=== PATIENT | male | born 1945 | race African-American/Black ===

== ENCOUNTER 2018-08-31 01:22 | Inpatient (IN) ==
[2018-08-31] MEDS ORDERED: DUONEB (A & A) INH ONE (01:45)
[2018-08-31] MEDS ORDERED: SOLU-MEDROL IV ONE (01:45)
--- NOTE | 2018-08-31 02:10 | PROVIDER DOCUMENTATION ---
This chart was entered by Jaclyn Fang Scribe, acting as scribe for Tomás Harrison MD. HPI-Respiratory General - General Chief Complaint: Shortness of Breath Stated Complaint: SOB Time Seen by Provider: 08/31/18 01:39 Source: patient Allergies/Adverse Reactions: Patient Allergies Allergy/AdvReac Type Severity Reaction Status Date / Time No Known Allergies Allergy Verified 08/26/14 01:24 Home Medications: Home Medication List Medication Instructions Recorded Confirmed Last Taken Type Fluticasone/Salmeterol [Advair 1 each IH DAILY 07/29/13 08/26/14 08/24/14 08:00 History 500-50 Diskus] Ipratropium/Albuterol INH 1 puff INH RTQ6H 07/29/13 08/26/14 08/25/14 08:00 History [Combivent Respimat Inhaler] Isosorbide Mononitrate [Isosorbide 30 mg PO DAILY 07/29/13 08/26/14 08/03/13 20:00 History Mononitrate ER] Losartan [Cozaar] 100 mg PO DAILY 07/29/13 08/26/14 08/03/13 20:00 History Nitroglycerin [Nitrostat] 0.6 mg SL DIRECTED PRN 07/29/13 08/26/14 08/02/13 History Terazosin [Hytrin] 5 mg PO DAILY 07/29/13 08/26/14 08/25/14 08:00 History Allopurinol 300 mg PO BID 08/26/14 08/26/14 08/25/14 08:00 History Amoxicillin 1,000 mg PO BID 08/26/14 08/26/14 Unknown History Clarithromycin [Biaxin] 500 mg PO BID 08/26/14 08/26/14 Unknown History Furosemide [Lasix] 20 mg PO BID #60 tablet 08/26/14 Unknown Rx Hydrochlorothiazide 25 mg PO DAILY 08/26/14 08/26/14 08/25/14 08:00 History Ipratropium/Albuterol Sulfate 1 each INH BID 08/26/14 08/26/14 08/25/14 08:00 History [Combivent Respimat Inhal Silver] Lansoprazole [Prevacid] 60 mg PO BID PRN 08/26/14 08/26/14 Unknown History Metoprolol Succinate [Toprol Xl] 50 mg PO DAILY 08/26/14 08/26/14 08/25/14 08:00 History Omeprazole [Prilosec] 40 mg PO DAILY 08/26/14 08/26/14 08/25/14 08:00 History Tramadol HCl [Ultram] 1 - 2 each PO Q6H PRN PRN 08/26/14 08/26/14 Unknown History - History of Present Illness-Resp Nature of Presenting Problem: pt is a 73 yr old male presenting with 2 week complaint of shortness of breath, pt reports he is currently being treated by his PCP and next appointment is on Saturday. pt reports using douneb tx with no relief Quality of Pain: reports: none Severity in ED: reports: moderate Onset/Duration: reports: other (2weeks) Timing: reports: still present, getting worse Exposure: reports: unknown cause Cough Quality/Degree: reports: moderate, productive cough, sputum (white sputum) Episode Frequency: occasional episodes Current Respiratory Medication Therapy: Initiated A/A nebulizer (no improvement) Modifying Factors: improves with: albuterol nebulizer (no improvement) Associated Symptoms: reports: cough, shortness of breath, wheezing Similar Symptoms Previously?: Yes Recently seen or treated by another doctor?: Yes (tx'd by PCP) Review of Systems - Adult - REVIEW OF SYSTEMS - ADULT Constitutional: denies: chills, fever Eyes: reports: no symptoms reported Ears, Nose, Mouth & Throat: reports: no symptoms reported Cardiovascular: denies: chest pain, palpitations, syncope Respiratory: reports: cough, dyspnea on exertion, shortness of breath, wheezing Gastrointestinal: denies: abdominal pain, diarrhea, nausea, vomiting Genitourinary: reports: no symptoms reported Musculoskeletal: reports: no symptoms reported Integumentary: reports: no symptoms reported Neurological: reports: no symptoms reported Psychiatric: reports: no symptoms reported Endocrine: reports: no symptoms reported Hematologic/Lymphatic: reports: no symptoms reported Allergic/Immunologic: reports: no symptoms reported All Other Systems: Reviewed and Negative Past History - Adult - PAST MEDICAL HISTORY-ADULT Review of Records: reports: Old Records Reviewed, Nursing Assessment Review, Medications Reviewed, Social history reviewed & non-contributory. Major Childhood Illnesses: reports: denies history Cardiovascular: reports: CAD, CHF, HTN Respiratory: reports: COPD Gastrointestinal: reports: GERD Obstetrical/Gynecological: reports: denies history Genitourinary: reports: denies history Musculoskeletal: reports: denies history Neurological: reports: denies history Endocrine/Immune: reports: denies history Other Conditions: reports: denies history - PRIOR SURGERIES/PROCEDURES Surgical/Procedure History: reports: CABG - IMMUNIZATION STATUS Childhood Immunizations: See Nurse Assessment Flu Vaccine: See Nurse Assessment - FAMILY HISTORY Family History: reviewed, not pertinent - SOCIAL HISTORY Smoking: quit greater than 1 year Substance Use: denies Living Situation: alone Physical Exam-General - PHYSICAL EXAM-ADULT Initial Vital Signs Reviewed: Yes - CONSTITUTIONAL General Appearance: alert, no apparent distress - EYES Eyes: PERRL/EOMI - HEAD, EARS, NOSE, MOUTH & THROAT HENMT: normocephalic/atraumatic, moist mucous membranes, normal ENT inspection - NECK Neck: non-tender, full range of motion, supple, normal inspection - RESPIRATORY Respiratory: wheezing (diffuse inspritory/expritory wheezes) - CARDIOVASCULAR Cardiovascular: normal peripheral pulses, regular rate, rhythm - GASTROINTESTINAL (ABDOMEN) Abdominal Exam: normal bowel sounds, non tender, soft - LYMPHATIC Lymphatic: no adenopathy - MUSCULOSKELETAL Back Exam: normal inspection, no CVA tenderness, no vertebral tenderness Extremity: normal range of motion, non-tender, normal gait, normal inspection - SKIN Integumentary: normal color, normal turgor, warm/dry - NEUROLOGIC Neurologic: grossly normal, no motor/sensory deficits - PSYCHIATRIC Psych/Mental Status: normal mood/affect Progress - PLAN OF CARE/RESULTS Progress/Plan/Lab Results: Vital Signs - 8 hr 08/31/18 01:24 08/31/18 01:28 Temperature 98.3 F Pulse Rate 59 L 61 Respiratory Rate 18 20 Blood Pressure 157/72 O2 Sat by Pulse Oximetry 97 95 Laboratory Results - last 24 hr 08/31/18 08/31/18 08/31/18 01:56 01:56 01:56 WBC 10.70 RBC 5.04 Hgb 14.1 Hct 41.2 L MCV 81.7 MCH 28.0 MCHC 34.2 RDW Std Deviation 15.2 H Plt Count 202 MPV 10.2 Immature Gran % (Auto) 0.2 Neut % (Auto) 60.9 Lymph % (Auto) 23.0 Patrick % (Auto) 5.7 Eos % (Auto) 9.5 Baso % (Auto) 0.7 Immature Gran # (Auto) 0.02 Neut # (Auto) 6.51 H Lymph # (Auto) 2.46 Patrick # (Auto) 0.61 H Eos # (Auto) 1.02 H Baso # (Auto) 0.08 Sodium 146 H Potassium 3.3 L Chloride 104 Carbon Dioxide 30 Anion Gap 12 BUN 16 Creatinine 1.3 H Estimated GFR/1.73 m2 54 BUN/Creatinine Ratio 12 Glucose 123 H Calculated Osmolality 293 Calcium 9.6 Creatine Kinase Troponin T < 0.010 Acv-Q-Raejxfwkgug Pept 08/31/18 08/31/18 01:56 01:56 WBC RBC Hgb Hct MCV MCH MCHC RDW Std Deviation Plt Count MPV Immature Gran % (Auto) Neut % (Auto) Lymph % (Auto) Patrick % (Auto) Eos % (Auto) Baso % (Auto) Immature Gran # (Auto) Neut # (Auto) Lymph # (Auto) Patrick # (Auto) Eos # (Auto) Baso # (Auto) Sodium Potassium Chloride Carbon Dioxide Anion Gap BUN Creatinine Estimated GFR/1.73 m2 BUN/Creatinine Ratio Glucose Calculated Osmolality Calcium Creatine Kinase 413 H Troponin T Hnd-L-Secsaazfxps Pept 148 Orders Category Date Time Status Cardiac Monitoring DIRECTED Care 08/31/18 01:47 Active CHEST-PORTABLE [RAD] Stat Exams 08/31/18 01:48 Taken ABG [RESP] Routine Lab 08/31/18 02:55 Ordered BLOOD CULTURE [BLDCUL] Stat Lab 08/31/18 01:58 Ordered BMP [BASIC METABOLIC PANEL] [CHEM] Stat Lab 08/31/18 01:56 Completed BNP [PRO B-NATRIURETIC PEPTIDE] Stat Lab 08/31/18 01:56 Completed CBC WITH ELECTRONIC DIFF [HEME] Stat Lab 08/31/18 01:56 Completed CK PROFILE [SP CHEM] Stat Lab 08/31/18 01:56 Results TROPONIN T Stat Lab 08/31/18 01:56 Completed Albuterol 2.5MG/Ipratrop 0.5MG [Duoneb (A & A)] Med 08/31/18 01:45 Discontinued 3 ml INH NOW ONE CefTRIAXONE [Rocephin] 1 gm Med 08/31/18 02:54 Active 0.9% Sodium Chloride Inj [Ns] 50 ml IV NOW Methylprednisolone Sod Succ [Solu-Medrol] Med 08/31/18 01:45 Discontinued 125 mg IV NOW ONE Aerosol Treatments Routine Oth 08/31/18 01:45 Active Aerosol Treatments Stat Oth 08/31/18 01:45 Active EKG [EKG] Stat Ther 08/31/18 01:47 Ordered Result Diagrams: 08/31/18 01:56 08/31/18 01:56 - EKG 1 Time of EKG reading by physician:: 01:47 EKG Read and Signed by:: Tomás Harrison Rate: 59 Rhythm: sinus yoly QRS: normal MT Interval: normal - XRAY 1 XRAY Study: Chest XRAY Interpretation: obscured left hemidiaphram- cannot rule out LLL infiltrate - CONSULTS/PCP/HOSPITALIST Notification #1 *Consult/PCP/Hospitalist*: Dr. Cruz, hospitalist Time Discussed: 03:05 Consult Disposition: Admit Departure - Departure Date of Disposition Decision: 08/31/18 Time of Disposition Decision: 03:04 DIAGNOSIS: COPD exacerbation Disposition: ADMITTED INPATIENT 09 Certified Medical Emergency: Emergent Condition: Stable Referrals and Follow-Ups: Violeta Jay MD [Primary Care Provider] - - Critical Care Note This patient required my direct & personal management of CC.: No Attestation - Physician/ KHALIF Attestation Patient care was provided by Advanced Practice Provider:: No The physician spent face to face time with patient:: Yes Advanced Practice Provider documentation review:: Supervising physician onsite and consulted in the evaluation and care of this patient. The physician did have a face to face encounter with the patient. This chart was documented by the indicated scribe, (Jaclyn Fang Scribe) and accurately reflects the services I performed and decisions made by me, Tomás Harrison MD, as attested by the provider's signature.
[2018-08-31 02:30] LABS: BASO# 0.08 X1000 (0.0-0.2); BASO% 0.7 % (0.0-0.8); EOS# 1.02 X1000 (0.0-0.7); EOS% 9.5 % (0.0-10.0); HEMATOCRIT 41.2 % (42.0-52.0); HEMOGLOBIN 14.1 g/dL (14.0-18.0); IMM GRAN# 0.02 X1000 (0.0-0.04); IMM GRAN% 0.2 % (0.0-0.5); LYMPH# 2.46 X1000 (1.2-3.4); MCHC 34.2 g/dL (33-37); MCV 81.7 FL (81-99); MONO# 0.61 X1000 (0.11-0.59); MONO% 5.7 % (1.7-9.3); MPV 10.2 FL (7.4-10.4); NEUT# 6.51 X1000 (1.4-6.5); NEUT% 60.9 % (42.2-75.2); PLT 202 X1000 (130-400); RBC 5.04 XMIL (4.7-6.1); RDW 15.2 % (11.5-14.5)
[2018-08-31 02:42] LABS: CALCIUM 9.6 mg/dL (8.8-10.2); CREATININE 1.3 mg/dL (0.7-1.2); POTASSIUM 3.3 mmol/L (3.5-5.1)
[2018-08-31] MEDS ORDERED: ROCEPHIN 1 GM in NS 50 ML IV ONE (02:54)
[2018-08-31] MEDS ORDERED: ZITHROMAX 500 MG/NS 500 MG/250 ML IVPB IV ONE (03:07)
[2018-08-31 03:15] LABS: CK INDEX 0.8 (0.0-2.5); CK-MB 3.1 ng/mL (0.0-5.0)
[2018-08-31] MEDS: SOLU-MEDROL IV SCH ×3 (03:30→16:56)
[2018-08-31] MEDS: DUONEB (A & A) INH SCH ×6 (04:13→23:02)
[2018-08-31 06:43] LABS: BLOOD TYPE ARTERIAL; SAMPLE BLOOD
[2018-08-31 06:49] LABS: PCO2(98.6) 50 mmHg (35-45); pH(98.6) 7.43 (7.35-7.45)
[2018-08-31 06:50] LABS: BE 7.3 mmoll (-3.0-3.0); HCO3-(ACT) 30.6 mmoll (20.0-26.0); PO2(98.6) 121 mmHg (60-100)
[2018-08-31 06:51] LABS: METHB 1.6 % (0.0-1.5); O2(CT) 20.1 mL/dL (15.0-23.0); O2HB 95.4 % (95.0-99.0); SAO2 98.1 % (95.0-100.0); THB 14.9 g/dL (11.5-17.4)
[2018-08-31 06:52] LABS: ALLEN TEST YES; MODALITY CANNULA
[2018-08-31] MEDS: HUMULIN R (PARKWAY) SUBQ SCH ×4 (07:41→20:23)
--- NOTE | 2018-08-31 07:42 | Diag Imaging Result Doc PS360 ---
EXAM: CHEST-PORTABLE HISTORY: sob,wheezing TECHNIQUE: Chest single view COMPARISON: 10/10/2015 FINDINGS: Poor inspiratory effort. Sternal wires and surgical clips are present. Mild cardiac prominence. No consolidation. Mild increased markings in the left base. No pleural effusions identified. IMPRESSION: Possible small left lower infiltrate. Electronically signed by Taj Singh 08/31/2018 7:39 AM
[2018-08-31] MEDS: LOPRESSOR PO SCH ×2 (09:03→20:23)
[2018-08-31] MEDS ORDERED: NS 1,000 ML IV ONE (09:46)
[2018-08-31] MEDS ORDERED: KLOR-CON PO ONE (09:50)
[2018-08-31] MEDS ORDERED: PRILOSEC PO PRN (11:26)
[2018-08-31] MEDS ORDERED: ULTRAM PO PRN (11:26)
[2018-08-31] MEDS ORDERED: NITROGLYCERIN SL PRN (11:26)
--- NOTE | 2018-08-31 12:26 | HISTORY AND PHYSICAL ---
PRIMARY CARE PHYSICIAN: Dr. Violeta Jay CHIEF COMPLAINT: Dyspnea, cough, wheezing. HISTORY OF PRESENT ILLNESS: Mr. Ferrera is a 73-year-old male with a history of COPD, hypertension, coronary artery disease, who presents with 1 month of progressive dyspnea. He reports worsening shortness of breath with exertion, wheezing, cough which is nonproductive. He went to see Dr. Jay around 2 weeks ago who prescribed him antibiotic in the office along with Z- Ethan and oral steroids. Unfortunately, his symptoms have not improved. He continues to have worsening dyspnea on exertion with wheezing and cough. He came to the ER last night. Chest x-ray showed possible small left lower lobe infiltrate, although inspiration was poor. His laboratory data shows mild hypernatremia and some mild renal insufficiency which is new for him. He denies orthopnea. No real lower extremity edema and no chest pain. He does not have a fever. He has been started on antibiotics, breathing treatments and aggressive pulmonary toilet. He will be admitted for further treatment and evaluation. PAST MEDICAL HISTORY: 1. COPD on nocturnal oxygen. 2. Suspect sleep apnea. 3. Coronary artery disease. 4. Hypertension. 5. Hyperlipidemia. 6. Diabetes mellitus. 7. Gastroesophageal reflux disease. 8. Obesity. PAST SURGICAL HISTORY: He has had a CABG. SOCIAL HISTORY: He quit smoking 5 years ago. He denies alcohol or drug use. FAMILY HISTORY: Noncontributory. REVIEW OF SYSTEMS: A 14-point review of systems was obtained and found to be negative with the exception of the HPI. ALLERGIES: No known drug allergies. HOME MEDICATIONS: Albuterol 4 times a day, allopurinol 300 mg p.o. b.i.d., atorvastatin 40 mg daily, glipizide 5 mg p.o. b.i.d., hydrochlorothiazide 25 mg daily, Hytrin 5 mg daily, latanoprost 2.5 mL to both eyes daily, metoprolol tartrate 25 mg p.o. b.i.d., Nitrostat 0.6 mg sublingual as needed, potassium chloride 10 mEq p.o. daily, Prilosec 40 mg as needed, tramadol 50 to 100 mg as needed daily, Lasix 20 mg p.o. b.i.d. PHYSICAL EXAMINATION: VITAL SIGNS: Blood pressure is 146/83, heart rate 67, respiratory rate 22, O2 saturation is 94% on nasal cannula, temperature is 98.3 GENERAL: An obese male lying in hospital bed in no acute distress. NEUROLOGICAL: Awake, alert and oriented, follows commands, no focal deficits. HEENT: Head is atraumatic and normocephalic. Pupils are equal, round and reactive to light. Oral mucosa dry. NECK: Trachea midline. No JVD. CHEST: Wheezes bibasilarly. CARDIOVASCULAR: Regular rate and rhythm. S1 and S2 are noted. There are no murmurs. GASTROINTESTINAL: Soft, nondistended and nontender. Bowel sounds positive. EXTREMITIES: No edema. Pulses 1+ bilaterally. DIAGNOSTIC DATA: Chest x-ray shows questionable left lower lobe infiltrate, poor inspiration. WBC is 10.7, hemoglobin 14.1, hematocrit 41.2, platelet count 202. ABG on nasal cannula shows pH of 7.43, CO2 of 50, O2 is 121, bicarbonate 30.6. Sodium is 146, potassium 3.3, chloride 104, CO2 is 30, anion gap is 12, BUN is 16, creatinine 1.3, glucose 123, calcium 9.6, magnesium 1.6. CK is 413. Troponin negative. ProBNP is 148. ASSESSMENT AND PLAN: 1. Chronic obstructive pulmonary disease exacerbation with questionable pneumonia. Continue antibiotics, breathing treatments and aggressive pulmonary toilet. We have added incentive spirometry and will check a 2-view chest x-ray with better inspiration. We have ordered sputum cultures as well. 2. Acute kidney injury. The patient appears volume depleted with hypokalemia and hypernatremia. He is likely slightly volume depleted. We will order some light IV fluids and hold his diuretics and monitor response and adjust as necessary. 3. Hypertension. Continue home medications. Stable. 4. Diabetes mellitus. Add pattern sugars, sliding scale insulin. Hold his glipizide. 5. Hypokalemia. We will check a magnesium and replace. 6. DVT prophylaxis with Lovenox. Further recommendations to follow. Dictated by ALEJANDRO Parham for Jeremías Cruz MD cc: ALEJANDRO Parham MD Bernice Swain, MD
--- NOTE | 2018-08-31 13:17 | Diag Imaging Result Doc PS360 ---
EXAM: CHEST-2 VIEWS HISTORY: copd vs pna, poor inspiratory effort on portable TECHNIQUE: Chest two views COMPARISON: 08/31/2018 2:03 AM FINDINGS: The lungs are well expanded. The heart is not enlarged. Sternal wires are present. The vessels are not distended. The markings in the left base are less pronounced on the current exam. No pleural effusions. IMPRESSION: No definite pneumonia. Electronically signed by Taj Singh 08/31/2018 1:14 PM
[2018-08-31 13:36] LABS: BILIRUBIN URINE NEGATIVE (NEGATIVE); CLARITY CLEAR (CLEAR); COLOR YELLOW; KETONE URINE NEGATIVE (NEGATIVE); URINE EPITHELIAL CELLS <10 /HPF (<10); URINE RBC <10 /HPF (<10); URINE SOURCE CLEAN CATCH
[2018-08-31 13:37] LABS: BLOOD URINE 2+ (NEGATIVE); LEUKOCYTES URINE NEGATIVE (NEGATIVE); NITRITE URINE NEGATIVE (NEGATIVE); PROTEIN URINE NEGATIVE (NEGATIVE); UROBILINOGEN URINE NORMAL
[2018-08-31] MEDS: ACCUNEB INH SCH ×2 (16:42→23:02)
[2018-08-31] MEDS ORDERED: HYTRIN PO SCH (20:45)
[2018-09-01] MEDS: SOLU-MEDROL IV SCH ×3 (00:03→18:10)
--- NOTE | 2018-09-01 00:28 | HISTORY AND PHYSICAL ---
ADDENDUM: Patient seen and examined by myself. Full note dictated and discussed with nurse practitioner. Patient presented to the hospital with increased cough, congestion, shortness of breath. Subsequently he was diagnosed with COPD exacerbation. We will admit him to the hospital. Fluids, antibiotics, breathing treatments and we will follow. cc: Jeremías Cruz MD
[2018-09-01] MEDS: DUONEB (A & A) INH SCH ×2 (03:16→07:40)
[2018-09-01] MEDS: ACCUNEB INH SCH ×4 (03:17→20:54)
[2018-09-01] MEDS: ROCEPHIN 1 GM in NS 50 ML IV SCH (06:01)
[2018-09-01] MEDS: HUMULIN R (PARKWAY) SUBQ SCH ×4 (06:15→21:42)
[2018-09-01] MEDS ORDERED: PRILOSEC PO PRN (07:00)
[2018-09-01 07:55] LABS: HEMOGLOBIN A1C 6.2 % (4.8-6.0)
[2018-09-01 07:56] LABS: BASO# 0.01 X1000 (0.0-0.2); BASO% 0.1 % (0.0-0.8); EOS# 0.01 X1000 (0.0-0.7); EOS% 0.1 % (0.0-10.0); HEMATOCRIT 41.8 % (42.0-52.0); HEMOGLOBIN 14.1 g/dL (14.0-18.0); IMM GRAN# 0.05 X1000 (0.0-0.04); IMM GRAN% 0.3 % (0.0-0.5); LYMPH# 1.32 X1000 (1.2-3.4); LYMPH% 7.9 % (20.5-51.1); MCH 27.7 PG (27-31); MCHC 33.7 g/dL (33-37); MCV 82.1 FL (81-99); MPV 10.7 FL (7.4-10.4); NEUT# 14.83 X1000 (1.4-6.5); NEUT% 88.6 % (42.2-75.2); PLT 201 X1000 (130-400); RBC 5.09 XMIL (4.7-6.1); RDW 15.1 % (11.5-14.5); WBC 16.72 X1000 (4.8-10.8)
[2018-09-01] MEDS ORDERED: ZITHROMAX 500 MG/NS 500 MG/250 ML IVPB IV SCH (08:00)
[2018-09-01 08:13] LABS: AGAP 11; BUN 20 mg/dL (8-22); CALCIUM 9.4 mg/dL (8.8-10.2); CHLORIDE 106 mmol/L (98-107); COSMO 296; ESTIMATED GFR > 60; GLUCOSE 212 mg/dL (70-104); MAGNESIUM 1.7 mg/dL (1.5-2.7); POTASSIUM 3.9 mmol/L (3.5-5.1); SODIUM 144 mmol/L (136-145); TCO2 27 mmol/L (25-35)
[2018-09-01] MEDS: HYTRIN PO SCH (08:38)
[2018-09-01] MEDS: LOPRESSOR PO SCH ×2 (08:38→21:42)
[2018-09-01] MEDS ORDERED: XALATAN 0.005% OPH SOLN BOTH EYES SCH ×2 (09:00→21:00)
[2018-09-01 09:23] LABS: ANISOCYTOSIS 1+; LYMPHS 7 % (21-51); MONO 5 % (1-9); SEGS 88 % (42-75)
[2018-09-01] MEDS: ZYLOPRIM PO SCH ×2 (10:05→21:42)
--- NOTE | 2018-09-01 14:09 | EKG Report ---
Test Performed on : 08/31/2018 01:46:24 AM Test Reason : pain Blood Pressure : / mmHG Vent. Rate : 059 BPM Atrial Rate : 059 BPM P-R Int : 164 ms QRS Dur : 076 ms QT Int : 402 ms P-R-T Axes : 058 046 -67 degrees QTc Int : [address] & T wave abnormality, consider inferior ischemia ST & T wave abnormality, consider anterolateral ischemia Abnormal ECG No previous ECGs available Unconfirmed Result
--- NOTE | 2018-09-01 15:59 | PROGRESS NOTE ---
DATE: 09/01/2018 SUBJECTIVE: The patient has no major issues. His breathing is better. He feels like his wheezing is only in his upper lobes. OBJECTIVE: Vital Signs: Blood pressure is 148/73, heart rate of 63, respiratory rate of 20, temperature 97.7 degrees, oxygen saturation 96% on room air. He is afebrile. Cardiovascular: Regular rate and rhythm. Pulmonary: Bilateral breath sounds. He does have wheezing throughout, but he has airway movement throughout. Gastrointestinal: Soft, nontender, nondistended. Bowel sounds positive. LABORATORY DATA: White count up to 16, hemoglobin and hematocrit of 14 and 41, platelets 201,000. Basic looked okay. ProBNP of note was only 148 yesterday and normal. PROBLEM LIST: 1. Chronic obstructive pulmonary disease exacerbation, acute. Chest x-ray does not show pneumonia, so in any case I think he is he is stabilizing. I am going to wean his steroids, although not stop them. I think we can do one antibiotic, as he does not have pneumonia, and follow. He is on breathing treatments. Advised on smoking cessation, which I think he has completed. 2. Acute kidney injury, dehydration. That appears to be resolved. His sodium is normal, potassium. He is back on a diabetic diet. 3. Diabetic diet, again indicates his A1c actually is not bad, 6.2, actually very good. We will continue his regular medications. Monitor closely while he is on steroids, which has induced some degree of hyperglycemia. His glipizide has been held, and I do not know why. I am going to resume it, and we will see how he does. DISPOSITION: I anticipate discharge hopefully tomorrow if his breathing has improved. cc: Ray Daly MD
[2018-09-01] MEDS ORDERED: LIPITOR PO SCH (21:00)
[2018-09-01] MEDS: GLUCOTROL PO SCH (21:42)
[2018-09-02] MEDS: SOLU-MEDROL IV SCH ×2 (00:19→09:40)
[2018-09-02] MEDS: ACCUNEB INH SCH ×3 (03:23→15:10)
[2018-09-02 07:40] LABS: AGAP 10; BUN 19 mg/dL (8-22); CALCIUM 9.2 mg/dL (8.8-10.2); CHLORIDE 108 mmol/L (98-107); COSMO 293; CREATININE 0.9 mg/dL (0.7-1.2); ESTIMATED GFR > 60; GLUCOSE 169 mg/dL (70-104); POTASSIUM 4.1 mmol/L (3.5-5.1); SODIUM 144 mmol/L (136-145); TCO2 26 mmol/L (25-35)
[2018-09-02 07:43] LABS: BASO# 0.01 X1000 (0.0-0.2); BASO% 0.1 % (0.0-0.8); EOS# 0.01 X1000 (0.0-0.7); EOS% 0.1 % (0.0-10.0); HEMATOCRIT 41.9 % (42.0-52.0); HEMOGLOBIN 13.9 g/dL (14.0-18.0); IMM GRAN# 0.09 X1000 (0.0-0.04); IMM GRAN% 0.5 % (0.0-0.5); LYMPH# 1.25 X1000 (1.2-3.4); LYMPH% 6.3 % (20.5-51.1); MCH 27.3 PG (27-31); MCHC 33.2 g/dL (33-37); MCV 82.2 FL (81-99); MONO# 0.69 X1000 (0.11-0.59); MONO% 3.5 % (1.7-9.3); MPV 10.6 FL (7.4-10.4); NEUT# 17.73 X1000 (1.4-6.5); NEUT% 89.5 % (42.2-75.2); PLT 194 X1000 (130-400); RDW 15.5 % (11.5-14.5); WBC 19.78 X1000 (4.8-10.8)
[2018-09-02] MEDS: ROCEPHIN 1 GM in NS 50 ML IV SCH (07:52)
[2018-09-02] MEDS ORDERED: LOVENOX SUBQ SCH (09:00)
[2018-09-02] MEDS ORDERED: ZITHROMAX PO SCH (09:00)
[2018-09-02] MEDS: LOPRESSOR PO SCH (09:32)
[2018-09-02] MEDS: HYTRIN PO SCH (09:32)
[2018-09-02] MEDS: ZYLOPRIM PO SCH (09:32)
[2018-09-02] MEDS: GLUCOTROL PO SCH (09:32)
[2018-09-02] MEDS: HUMULIN R (PARKWAY) SUBQ SCH ×2 (09:40→11:21)
[2018-09-02 11:57] LABS: BANDS 1 % (0-1); LYMPHS 7 % (21-51); MONO 2 % (1-9); SEGS 90 % (42-75)
[2018-09-02 15:20] VITALS: BP 166/79
--- NOTE | 2018-09-02 19:22 | DISCHARGE SUMMARY ---
ADMISSION DATE: 09/02/2018 DISCHARGE DATE: 09/02/2018 ADDENDUM REPORT DISCHARGE DIAGNOSES: 1. Chronic obstructive pulmonary disease exacerbation. 2. Acute kidney injury. 3. Type 2 diabetes. BRIEF HOSPITAL COURSE: Briefly, this is a pleasant 73-year-old male with COPD on nocturnal oxygen, CAD, who came in with wheezing and shortness of breath. His chest x-rays did not show clear pneumonia, questionable left lower lobe infiltrate. He was placed on steroids and breathing treatments. He improved within about 24 hours. On the day of discharge, the , there was no wheezing. The patient is overall improved. DISCHARGE INSTRUCTIONS: We will discharge on prednisone, Omnicef, DuoNebs. This is a [id number] encounter note with Trudy Grullon 32 minute discharge. He did have mild elevation in his white count, but it was almost pure neutrophils which I felt was likely related to a steroid than uncontrolled infection. Again, the day of discharge, he had no breathing difficulties whatsoever. cc: Ray Daly MD
--- NOTE | 2018-09-02 22:39 | DISCHARGE SUMMARY ---
ADMISSION DATE: 09/02/2018 DISCHARGE DATE: 09/02/2018 CONSULTATIONS: None. PERTINENT PROCEDURES: 1. EKG sinus bradycardia, 59 beats per minute. 2. Chest x-ray, possible small left lower lobe infiltrate, followup no definite pneumonia. DISCHARGE DIAGNOSES: 1. Chronic obstructive pulmonary disease exacerbation acute now resolved. 2. Acute kidney injury secondary to dehydration, resolved. 3. Dehydration resolved. 4. Diabetes mellitus. The patient is to resume diabetic diet. Continue home medications. 5. Hypertension. 6. Hyperlipidemia. 7. Gastroesophageal reflux disease. 8. Obesity. HOSPITAL COURSE: Briefly Mr. Ferrera is a 73-year-old male with history of COPD, hypertension, coronary artery disease, presented to the ED with a 1 month history of progressive dyspnea, worsening shortness of breath with exertion, wheezing and nonproductive cough. He went to see his PCP Dr. Jay 2 weeks prior who prescribed him antibiotic in office with Z-Ethan and oral steroids however his symptoms did not improve. His chest x-ray in the ED showed a possible left lower lobe infiltrate. Laboratory data showed some mild renal insufficiency, was felt he was dehydrated, he was initiated on antibiotics, breathing treatments, aggressive pulmonary toilet and steroids admitted for questionable pneumonia with a COPD exacerbation. He was weaned off his steroids will be placed on p.o. taper, p.o. antibiotics and bronchodilators. He has had a stable hospital course, is clinically stable for discharge today. [facility] p.m[facility] VITAL SIGNS: At time of discharge temperature is 97.6 degrees, heart rate 58, respirations 16, blood pressure 166/79, O2 is 100% on room air. DISCHARGE DIET: Diabetic. DISCHARGE MEDICATIONS: 1. Albuterol sulfate 0.63 mg inhaled 4 times a day. 2. Allopurinol 300 mg p.o. b.i.d. 3. Glipizide 5 mg p.o. b.i.d. 4. Hytrin 5 mg p.o. daily. 5. Xalatan ophthalmic solution 0.25 mL both eyes at bedtime. 6. Metoprolol 25 mg p.o. b.i.d. 7. Nitrostat 0.6 mg sublingual as directed. 8. Potassium chloride 10 mEq p.o. daily. 9. Prilosec 40 mg p.o. p.r.n. indigestion. 10. Tramadol 50 mg 1 to 2 each p.o. q.6 hours p.r.n. pain. 11. DuoNeb 3 mL inhaled RT t.i.d. 12. Omnicef 300 mg p.o. b.i.d. for 1 week. 13. Prednisone taper patient is to take 4 tablets p.o. daily for 3 days then take 3 tablets daily for 3 days then 2 tablets daily for 3 days then 1 tablet daily for 3 days. 14. Atorvastatin calcium 40 mg p.o. daily. FOLLOWUP: Mr. Ferrera is being discharged home with self-care. He has a [facility] at [facility] p.m., he is to take all medications as prescribed. He is to return to the ED or call 911 for any worsening of symptoms. Dictated by ALEJANDRO Guevara for Ray Daly MD cc: Ray Daly MD MTDD
== END 2018-09-02 16:41 | disposition home or self-care (01) | DRG 191 ==
LOC: P.ED 01:22 → P.EDIPHOLD 03:58 → INTOOBSV 03:58 → SUATTDRO 03:58 → P.MEDSURG 13:13
PROVIDERS: ATTEND Internal Medicine
CPT/HCPCS: 36415; 71010; 71020; 71045; 71046; 80048; 81001; 82550; 82553; 82805; 82948; 83036; 83735; 83880; 84484; 85025; 87070; 87205; 93005; 94640; 94761; 94799; 96365; 96366; 96368; 96375; 96376; 99285; A9270; J0456; J0696; J1650; J1815; J2920; J2930; J7030; J7613; XXXXX